=== PATIENT | female | born 1945 | race Caucasian/White ===

== ENCOUNTER → 2016-10-04 | Outpatient (CLI) | payer OTHER ==
[~2016-10-04] MED LIST: ATEN50TA8 PO; CLX20 PO; FENO48TA9 PO; LOSA50TA54 PO; MULT-506 PO; NUTRTAB40 PO; OMEP40CA41 PO
--- NOTE | 2016-10-04 11:58 | DIAGNOSTIC IMAGING REPORT ---
RENAL ULTRASOUND HISTORY: Renal insufficiency N18.3 COMPARISON: None. FINDINGS: Right kidney: Maximum dimension 10.1 cm. No evidence for hydronephrosis Normal corticomedullary differentiation and cortical thickness. Left kidney: Maximum dimension 10.4 cm. No evidence for hydronephrosis. Normal corticomedullary differentiation and cortical thickness. Bladder: No bladder wall thickening. The bilateral ureteral jets were identified. IMPRESSION: Normal renal ultrasound. Electronically signed by: Deejay Samuels M.D. 10/04/2016 11:57 AM Dictated Date/Time: 10/04/2016 11:56 AM
== END | disposition home or self-care (01) ==
LOC: C.ULTR 11:36
PROVIDERS: ATTEND Family Medicine
DX: N18.3 Chronic kidney disease, stage 3 (moderate) (principal)

== ENCOUNTER → 2016-11-09 | Outpatient (CLI) | payer OTHER ==
--- NOTE | 2016-11-12 16:45 | MAMMOGRAPHY REPORT ---
THIS REPORT HAS BEEN AMENDED. BILATERAL DIGITAL SCREENING MAMMOGRAM WITH CAD: 11/09/2016 CLINICAL HISTORY: Routine screening. Patient reports she is currently undergoing workup at an outsi de institution for bloody left nipple discharge. TECHNIQUE: Bilateral CC and MLO views were obtained. Current study was also evaluated with a Comput er Aided Detection (CAD) system. COMPARISON: Comparison is made to exams dated: 11/07/2015 mammogram, 11/03/2014 mammogram, 11/02/2013 mammogram, 10/30/2012 mammogram - [facility], 09/04/2011 mammogram, and 07/31/2010 ma mmogram - [facility]. BREAST COMPOSITION: The tissue of both breasts is heterogeneously dense, which may obscure small ma sses. FINDINGS: There are mild vascular calcifications and scattered benign-appearing round microcalcifica tions in the breasts. No obvious new mass, architectural distortion or cluster of new, suspicious m icrocalcifications is seen bilaterally. IMPRESSION: ACR BI-RADS CATEGORY 0: INCOMPLETE EVALUATION: NEED ADDITIONAL IMAGING EVALUATION 1. Stable bilateral mammograms, without evidence of a new suspicious abnormality bilaterally. 2. However, the patient reported recent episodes of left bloody nipple discharge and also reported a diagnostic workup at an outside institution. Further evaluation for new onset nipple discharge in cludes spot magnification views of the subareolar breast and/or targeted ultrasound. Correlation wi th the outside imaging results is recommended, and also surgical consultation is recommended. The patient will be called to schedule an appointment. Approximately 10% of breast cancers are not detected with mammography. A negative mammographic repor t should not delay biopsy if a clinically suggestive mass is present. Joaquina Jeong M.D. ay/:11/12/2016 15:59:00 Tail Sawyer: Gege Small RT(R)(M), [facility] letter sent: Addl Imaging 0 BI-RADS Code: ACR BI-RADS Category 0: Incomplete Evaluation: Need Additional Imaging Evaluation AMENDMENT: 11/14/2016 Joaquina Jeong M.D. Diagnostic left mammograms and targeted ultrasound performed 10/12/2016 at [facility] available for review. Similar to that exam, no new suspicious mass, architectural distortion or new clustered microcalcifications are identified within the left breast. Targeted ultrasound perfo rmed at that appointment demonstrated subareolar duct ectasia without evidence of an intraductal mas s. Agree with the outside assessment that if the bloody nipple discharge persists, surgical consult ation is recommended and cytology of the fluid may be useful. Otherwise if that finding is deemed b enign based on clinical evaluation, would recommend routine mammography in one year. Amended BI-RADS: ACR BI-RADS Category 2: Benign letter sent: Normal 07/23
== END | disposition home or self-care (01) ==
LOC: C.MAMM 13:15
PROVIDERS: ATTEND Physician Assistant
DX: Z12.31 Encounter for screening mammogram for malignant neoplasm of breast (principal); N64.52 Nipple discharge